=== PATIENT | male | born 1965 | race Caucasian/White ===

== ENCOUNTER 2019-02-09 23:23 | Emergency (ER) | payer MEDICAID, OTHER ==
[~2019-02-09] VITALS: Ht 185.4 cm; Wt 108.9 kg
[~2019-02-09 23:23] MED LIST: ADDERALL
[2019-02-09 23:26] VITALS: BP 149/85
== END 2019-02-10 02:54 | disposition home or self-care (01) ==
LOC: ER 23:24
DX: F22 Delusional disorders (principal); F17.200 Nicotine dependence, unspecified, uncomplicated; I13.0 Hypertensive heart and chronic kidney disease with heart failure and stage 1 through stage 4 chronic kidney disease, or unspecified chronic kidney disease; N18.9 Chronic kidney disease, unspecified; I50.9 Heart failure, unspecified
CPT/HCPCS: 74018